=== PATIENT | male | born 1955 | race Caucasian/White ===

== ENCOUNTER 2016-08-29 22:20 | Emergency (ER) | payer OTHER ==
--- NOTE | ~2016-08-29 | CR72 ---
[facility] A Service of [facility] & [facility] RADIOLOGY TEXT RESULTS PATIENT: CHIRAG LESTER LOCATION: [facility] : 51 UNIT #: [id number] AGE: [address]: Stacey Buchanan MD SEX: M ORDER DR: [id number] [facility] [address] [place], [place] [address] [id number] MR#: [id number] Acc #: [id number] NAME: CHIRAG LESTER : 1955 SEX: M STUDY DATE/TIME: 08/29/2016 23:23 UNIT: [facility] ROOM: STUDY DESCRIPTION: CR Chest Single View Portable Attending Physician: Stacey Buchanan M.D. Ordering Physician: Stacey Buchanan M.D. Primary Care Physician: Primary Care Physician No MEDICAL IMAGING REPORT This report is preliminary unless electronic signature is present EXAM Portable chest INDICATION Chest pain and shortness of air today. PROCEDURE Frontal view chest. COMPARISON 05/04/2007. FINDINGS Heart size within normal limits. No dense consolidation, effusion or pneumothorax. IMPRESSION No active process. Dictated by... Sheldon Avitia M.D. THIS IS AN ELECTRONICALLY VERIFIED REPORT Sheldon Avitia M.D. at 08/30/2016 9:55 PM CARMELINA/sha TD: 08/30/2016 08:31 JOB #: [id number] MEDICAL IMAGING REPORT Page 1 of 1 COPY
--- NOTE | ~2016-08-29 | EKG ---
PATIENT: CHIRAG LESTER UNIT #: [id number] Ventricular Rate: 77 BPM Atrial Rate: 77 BPM P-R Interval: 152 ms QRS Duration: 82 ms Q-T Interval: 382 ms QTC Calculation(Bezet): 432 ms P [place]: 50 degrees Calculated R [place]: 36 degrees Calculated T [place]: 52 degrees Diagnosis Line: Normal sinus rhythm Diagnosis Line: Possible Inferior infarct (cited on or before Diagnosis Line: 27-DEC-2013) Diagnosis Line: Abnormal ECG Diagnosis Line: When compared with ECG of 27-DEC-2013 10:33, Diagnosis Line: No significant change was found Diagnosis Line: Confirmed by ARIANA KHAN MD ([id number]) on Diagnosis Line: 08/30/2016 3:20:12 PM INTERPRETING MD: ERIN NIELSEN
--- NOTE | ~2016-08-29 | EKG ---
PATIENT: CHIRAG LESTER UNIT #: [id number] Ventricular Rate: 65 BPM Atrial Rate: 65 BPM P-R Interval: 148 ms QRS Duration: 84 ms Q-T Interval: 400 ms QTC Calculation(Bezet): 416 ms P [place]: 43 degrees Calculated R [place]: 36 degrees Calculated T [place]: 66 degrees Diagnosis Line: Normal sinus rhythm Diagnosis Line: Inferior infarct (cited on or before 27-DEC-2013) Diagnosis Line: Abnormal ECG Diagnosis Line: When compared with ECG of 29-AUG-2016 22:24, Diagnosis Line: (unconfirmed) Diagnosis Line: ST more elevated in Inferior leads Diagnosis Line: Confirmed by ARIANA KHAN MD ([id number]) on Diagnosis Line: 08/30/2016 3:20:36 PM INTERPRETING MD: ERIN NIELSEN
[~2016-08-29 22:20] MED LIST: ASPIRIN81 M2 PO; AUGMENTIN875 M1 PO; BUSPAR; DAKIN'S MODIF1000 ML; LEXAPRO; LISINOPRIL2.5 MG PO; MILK OF MAGNESIA PO; MOBIC PO; NEXIUM; NITROGLYGERIN0.4 MG SL; NITROQUICK0.4 MG SL; OMEPRAZOLE40 M1 PO; PERCOCET 5-3251 TAB PO; PERCOCET 7.5-31 EACH PO; PLAVIX; SEROQUEL; SIMVASTATIN80 MG PO; TOPROL XL PO; ZANTAC
[2016-08-29 23:15] LABS: BASOPHIL# 0.1 X10e3 (0-0.3); BASOPHIL% 0.7 % (0-2.5); EOSINOPHIL# 0.2 X10e3 (0-0.7); EOSINOPHIL% 2.2 % (0.0-7.0); HEMATOCRIT 44.2 % (38.0-50.0); LYMPHOCYTE# 3.7 X10e3 (1.0-3.5); LYMPHOCYTE% 36.2 % (17.0-45.0); MEAN CELL VOLUME 83.8 FL (83-96); MEAN CORPUSCULAR HEMOGLOBIN 28.5 PG (28-34); MONOCYTE# 0.9 X10e3 (0-1.0); MONOCYTE% 9.1 % (3.0-12.0); NEUTROPHIL# 5.3 X10e3 (1.5-7.1); NEUTROPHIL% 51.8 % (40-75); PLATELET COUNT 205 X10e3 (140-420); RED BLOOD COUNT 5.27 X10e (3.90-5.60); RED CELL DISTRIBUTION WIDTH 13.9 % (11.0-15.5); WHITE BLOOD COUNT 10.2 X10e3 (4.0-10.5)
[2016-08-29 23:16] LABS: DIFF IND NO
[2016-08-29 23:20] LABS: POC - CKMB <1.0 ng/mL (0.0-7.9); POC - TROPONIN <0.05 ng/mL (<=0.05)
[2016-08-29] MEDS ORDERED: MELOXICAM15 MG PO (23:28)
[2016-08-29 23:29] LABS: PARTIAL THROMBOPLASTIN TIME 25.8 SECONDS (23.5-31.3)
[2016-08-29] MEDS ORDERED: TOPROL XL 50 MG50 MG PO (23:29)
[2016-08-29 23:49] LABS: ALBUMIN SERUM 4.1 g/dL (3.5-5.0); BILIRUBIN, DIRECT 0.1 mg/dL (0.0-0.2); BILIRUBIN,INDIRECT 0.6 mg/dL (0.0-0.9); BILIRUBIN,TOTAL 0.7 mg/dL (0.2-2.0); BUN/CREATININE RATIO 13.33; CALCIUM SERUM 9.2 mg/dL (8.4-10.2); CREATININE SERUM 1.2 mg/dL (0.6-1.4); POTASSIUM 3.7 mmol/L (3.5-5.1); PROTEIN TOTAL SERUM 7.6 g/dL (6.0-8.3)
== END 2016-08-30 00:45 ==
LOC: CED 22:20
PROVIDERS: Emergency Medicine
DX: I21.3 ST elevation (STEMI) myocardial infarction of unspecified site (principal); I25.10 Atherosclerotic heart disease of native coronary artery without angina pectoris; I10 Essential (primary) hypertension; K21.9 Gastro-esophageal reflux disease without esophagitis; J44.9 Chronic obstructive pulmonary disease, unspecified; F17.210 Nicotine dependence, cigarettes, uncomplicated; Z79.899 Other long term (current) drug therapy; Z79.82 Long term (current) use of aspirin
CPT/HCPCS: 36415; 71010; 80048; 80076; 82553; 83690; 83880; 84484; 85025; 85610; 85730; 93005; 96374; 99285; J2270